=== PATIENT | female | born 1960 | race Caucasian/White ===

== ENCOUNTER 2017-07-25 19:02 | Emergency (ER) | payer BC ==
[~2017-07-25] VITALS: Ht 167.6 cm; Wt 76.4 kg
[2017-07-25] MEDS ORDERED: ORPHENADRINE100 MG PO (20:57)
[2017-07-25] MEDS ORDERED: PERCOCET 5/325M1 TAB PO (20:57)
[2017-07-25 21:16] VITALS: BP 124/68
== END 2017-07-25 21:17 | disposition home or self-care (01) | DRG 90 ==
LOC: ED 19:02
DX: S06.0X0A Concussion without loss of consciousness, initial encounter (principal); F17.210 Nicotine dependence, cigarettes, uncomplicated; I10 Essential (primary) hypertension; V80.010A Animal-rider injured by fall from or being thrown from horse in noncollision accident, initial encounter

== ENCOUNTER 2021-06-11 10:48 | Day surgery (SDC) | payer OTHER ==
[~2021-06-11 10:48] MED LIST: EFFEXOR XR37.5 MG PO; HYDROCHLOROT12.5 MG PO; ORPHENADRINE100 MG PO; PAXIL30 MG PO; PERCOCET 5/325M1 TAB PO; SIMVASTATIN40 MG PO; TENORMIN PO; ZEGERID1 CA1 PO
[2021-06-11 13:35] VITALS: BP 137/73
== END 2021-06-11 13:30 | disposition home or self-care (01) | DRG 395 ==
LOC: ENDO 10:48 → ORM 12:00 → ENDO 13:30 → ORM 13:45
PROVIDERS: ATTEND Internal Medicine Gastroenterology
PROC: 0DBN8ZX Excision of Sigmoid Colon, Via Natural or Artificial Opening Endoscopic, Diagnostic (ICD-10-PCS; principal; 2021-06-11)
PROC: 0DB48ZX Excision of Esophagogastric Junction, Via Natural or Artificial Opening Endoscopic, Diagnostic (ICD-10-PCS; 2021-06-11)
PROC: 0DB78ZX Excision of Stomach, Pylorus, Via Natural or Artificial Opening Endoscopic, Diagnostic (ICD-10-PCS; 2021-06-11)
PROC: 0D758ZZ Dilation of Esophagus, Via Natural or Artificial Opening Endoscopic (ICD-10-PCS; 2021-06-11)
DX: K63.5 Polyp of colon (principal); K64.4 Residual hemorrhoidal skin tags; K64.8 Other hemorrhoids; K29.70 Gastritis, unspecified, without bleeding; K44.9 Diaphragmatic hernia without obstruction or gangrene; Q40.2 Other specified congenital malformations of stomach; K22.89 Other specified disease of esophagus; K58.2 Mixed irritable bowel syndrome; I10 Essential (primary) hypertension; Z87.891 Personal history of nicotine dependence

== ENCOUNTER 2022-01-06 08:08 | Day surgery (SDC) | payer OTHER ==
[2022-01-06] MEDS ORDERED: COMBIPATC1 SD (10:01)
[2022-01-06] MEDS ORDERED: TIZANIDINE HCL2 MG PO (10:01)
[2022-01-06 10:47] VITALS: BP 145/72
== END 2022-01-06 10:50 | disposition home or self-care (01) | DRG 552 ==
LOC: ORM 08:08
PROVIDERS: ATTEND Physical Medicine & Rehabilitation
DX: M53.3 Sacrococcygeal disorders, not elsewhere classified (principal); G89.4 Chronic pain syndrome; M62.838 Other muscle spasm
CPT/HCPCS: Q9967

== ENCOUNTER 2022-02-03 07:43 | Day surgery (SDC) | payer OTHER ==
[~2022-02-03] VITALS: Ht 167.6 cm; Wt 81.6 kg
[~2022-02-03 07:43] MED LIST changes: +COMBIPATC1 SD; +TIZANIDINE HCL2 MG PO
[2022-02-03 10:16] VITALS: BP 145/88
== END 2022-02-03 10:04 | disposition home or self-care (01) | DRG 552 ==
LOC: ORM 07:43
PROVIDERS: ATTEND Physical Medicine & Rehabilitation
DX: M47.816 Spondylosis without myelopathy or radiculopathy, lumbar region (principal); G89.4 Chronic pain syndrome; M62.838 Other muscle spasm; M53.3 Sacrococcygeal disorders, not elsewhere classified
CPT/HCPCS: J3490

== ENCOUNTER 2022-03-17 07:12 | Day surgery (SDC) | payer OTHER ==
[~2022-03-17] VITALS: Ht 167.6 cm; Wt 81.6 kg
[~2022-03-17 07:12] MED LIST changes: +ALDACTONE25 MG PO; +BYSTOLIC10 MG PO; +CELEBREX100 M1 PO; +PANTOPRAZOLE SO40 M1 PO
[2022-03-17 09:05] VITALS: BP 160/94
== END 2022-03-17 09:37 | disposition home or self-care (01) | DRG 552 ==
LOC: ORM 07:12
PROVIDERS: ATTEND Physical Medicine & Rehabilitation
DX: M47.816 Spondylosis without myelopathy or radiculopathy, lumbar region (principal)

== ENCOUNTER 2022-04-07 07:18 | Day surgery (SDC) | payer OTHER ==
[~2022-04-07] VITALS: Ht 167.6 cm; Wt 79.4 kg
[2022-04-07 09:45] VITALS: BP 127/69
== END 2022-04-07 09:53 | disposition home or self-care (01) | DRG 552 ==
LOC: ORM 07:18
PROVIDERS: ATTEND Physical Medicine & Rehabilitation
DX: M53.3 Sacrococcygeal disorders, not elsewhere classified (principal); G89.4 Chronic pain syndrome; M62.838 Other muscle spasm; M47.816 Spondylosis without myelopathy or radiculopathy, lumbar region

== ENCOUNTER 2022-04-14 09:51 | Day surgery (SDC) | payer OTHER ==
[~2022-04-14] VITALS: Ht 167.6 cm; Wt 79.4 kg
[2022-04-14] MEDS ORDERED: MOUNJARO2.5 MG SC (10:26)
[2022-04-14 13:02] VITALS: BP 136/89
== END 2022-04-14 12:25 | disposition home or self-care (01) | DRG 552 ==
LOC: ORM 09:51
PROVIDERS: ATTEND Physical Medicine & Rehabilitation Pain Medicine
DX: M47.816 Spondylosis without myelopathy or radiculopathy, lumbar region (principal)